=== PATIENT | female | born 1985 | race Caucasian/White ===

== ENCOUNTER 2017-07-01 09:36 | Emergency (ER) | payer OTHER ==
[2017-07-01 10:20] LABS: Absolute Lymphocytes (CBC) 1.6 K/uL (0.7-4.9); Absolute Monocytes 0.6 K/uL (0.1-1.3); Basophils % 0.8 % (0-1.3); Eosinophils % 1.1 % (0-4.4); Hematocrit 33.3 % (36.0-45.0); Lymphocytes % 25.7 % (15.3-44.8); MCV 86.4 fL (80-100); Monocytes % 9.1 % (3.3-12.3); RBC Red Blood Cell Count 3.86 M/uL (3.86-4.86)
--- NOTE | 2017-07-01 10:31 | RAD REPORT ---
EXAM DESCRIPTION: CT - Head Brain Wo Cont - 07/01/2017 10:22 am CLINICAL HISTORY: Right sided numbness. Headaches x2 days COMPARISON: None. TECHNIQUE: Computed axial tomography of the head was obtained. IV contrast was not requested. All CT scans are performed using dose optimization technique as appropriate and may include automated exposure control or mA/KV adjustment according to patient size. FINDINGS: An intracranial bleed is not seen . The ventricles are normal in caliber. No extra-axial fluid collection is noted. Fluid within the sinuses/ mastoids is not seen. IMPRESSION: No acute intracranial abnormality is seen. If patient's symptoms persist MRI of the bra in would be recommended.
[2017-07-01 10:49] LABS: Protime INR 1.01
[2017-07-01 11:21] LABS: Bicarbonate 28 mEq/L (21-31); Glucose Level 81 mg/dL (65-120); Potassium 3.5 mEq/L (3.6-5.0); Sodium Level 141 mEq/L (135-145)
[2017-07-01 11:27] LABS: ALT/SGPT 17 IU/L (10-60); AST/SGOT 25 IU/L (10-42); Albumin 4.1 g/dL (3.2-5.5); Alkaline Phosphatase 53 IU/L (42-121); BUN Blood Urea Nitrogen 8 mg/dL (6-20); Bilirubin Direct 0.1 mg/dL (0-0.2); Bilirubin Total 0.2 mg/dL (0.3-1.2)
--- NOTE | 2017-07-01 11:31 | RAD REPORT ---
EXAM DESCRIPTION: MRI - Brain Wo Cont - 07/01/2017 11:14 am CLINICAL HISTORY: Right facial and body numbness COMPARISON: Head CT July 01, 2017 TECHNIQUE: Axial, sagittal, and coronal magnetic images of the brain were obtained. Contrast was not requested FINDINGS: No abnormal signal is present within the brain. Diffusion-weighted/ADC mapping does not reveal evidence of acute infarction. The ventricles are normal caliber. An extra-axial fluid collection is not present 11 millimeter mucus retention cyst is present in the right maxillary sinus. Fluid within the sinuses/ mastoids is not seen IMPRESSION: Unremarkable unenhanced brain MRI
[2017-07-01] MEDS ORDERED: KETOROLAC 30 MG/ML INJ ONE (11:37)
[2017-07-01] MEDS ORDERED: PROMETHAZINE 25 MG/ML VIAL ONE (11:37)
[2017-07-01] MEDS ORDERED: NA CHLORIDE 0.9% 1,000 ML ONE (11:38)
--- NOTE | 2017-07-01 12:12 | ER ---
Nurse's Notes [facility] Name: Lena Viramontes Age: 32 yrs Sex: Female : 1985 Arrival Date: 07/01/2017 Time: 09:38 Bed 17 Private MD: Diagnosis: Headache-Resolved;Facial paresthesia - Resolved Presentation: 07/01 09:46 Presenting complaint: Patient states: Pt reports headache X 2 days, numbness/tingling lm7 to right side of face and right hand since yesterday. Transition of care: patient was not received from another setting of care. Onset of symptoms was June 29, 2017. Care prior to arrival: None. 09:46 Method Of Arrival: Ambulatory lm7 09:46 Acuity: RAY 3 lm7 10:19 Initial Sepsis Screen: Does the patient meet any 2 criteria? No. Patient's initial em sepsis screen is negative. Does the patient have a suspected source of infection? No. Patient's initial sepsis screen is negative. Triage Assessment: 09:52 General: Appears in no apparent distress. Behavior is calm, cooperative. Pain: lm7 Complains of pain in right side of head and face. Neuro: Level of Consciousness is awake, alert, obeys commands, Oriented to person, place, time, situation. Respiratory: Airway is patent. Derm: Skin is intact, is healthy with good turgor, Skin is dry, Skin is pink, warm \T\ dry. normal. 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 - Social history:: Smoking status: Patient/guardian denies using alcohol, tobacco products. Screenin:25 Abuse screen: Denies threats or abuse. Nutritional screening: No deficits noted. em Tuberculosis screening: No symptoms or risk factors identified. Fall Risk None identified. Assessment: 10:05 General: Appears in no apparent distress. comfortable, Behavior is calm, cooperative, em Reports headache that started yesterday and had tingling in right side of face and noticed right side of smile droop Denies fever. Pain: Complains of pain in base of the skull Pain radiates to right eye Pain currently is 1 out of 10 on a pain scale. Pain began 1 day ago. Neuro: Level of Consciousness is awake, alert, obeys commands, Oriented to person, place, time, situation, Application Integration Specialist are equal bilaterally Moves all extremities. Gait is steady, Speech is normal, Facial droop on right, Pupils are PERRLA, Tingling in right cheek and right jaw. Neuro: Reports blurred vision in the right eye when the headache comes on. Cardiovascular: Heart tones S1 S2 present Capillary refill < 3 seconds Patient's skin is warm and dry. Respiratory: Airway is patent Respiratory effort is even, unlabored, Respiratory pattern is regular, symmetrical. GI: Abdomen is flat, Patient currently denies nausea, vomiting. : Urine is clear. EENT: No signs and/or symptoms were reported regarding the EENT system. Derm: Skin is intact, Skin is pink, warm \T\ dry. Musculoskeletal: Range of motion: intact in all extremities. 10:15 Reassessment: Patient appears in no apparent distress at this time. No changes from iw previously documented assessment. I agree with above assessment by Abdulkadir Tuttle LVN. 10:54 Reassessment: Patient appears in no apparent distress at this time. Patient and/or em family updated on plan of care and expected duration. Pain level reassessed. Patient is alert, oriented x 3, equal unlabored respirations, skin warm/dry/pink. 11:35 General: Smells of Reports Pt reports pain 3/10, states pain is bearable but nagging lm7 and sharp. Pt's sister at bedside stating pt has high pain tolerance and that pt is very stoic. VSS. Muscle twitching noted to right lower eyelid, smile is asymmetrical. ER MD notified. Will continue to monitor. . 11:51 General: Pt reports pain is resolved, feels drowsy. Numbness/tingling to right side of lm7 face is unchanged, VSS, awaiting MRI results, NAD noted at this time. Vital Signs: 09:52 BP 116 / 70; Pulse 74; Resp 16; Temp 97.8(O); Pulse Ox 100% on R/A; Weight 58.97 kg; lm7 Height 5 ft. 6 in. (167.64 cm); Pain 3/10; 11:34 BP 125 / 82; Pulse 62; Resp 16; Pulse Ox 100% on R/A; Pain 3/10; lm7 12:20 BP 120 / 77; Pulse 61; Resp 18; Pulse Ox 100% on R/A; Pain 1/10; em 09:52 Body Mass Index 20.98 (58.97 kg, 167.64 cm) lm7 Stanley Coma Score: 11:34 Eye Response: spontaneous(4). Verbal Response: oriented(5). Motor Response: obeys lm7 commands(6). Total: 15. ED Course: 09:38 Patient arrived in ED. iw 09:45 Julien Gutierrez MD is Attending Physician. kdr 09:45 Abdulkadir Tuttle LVN is Primary Nurse. em 09:48 Triage completed. lm7 09:52 Arm band placed on left wrist. lm7 09:53 Urine collected: clean catch specimen, clear, trung colored. jb1 10:05 Patient has correct armband on for positive identification. Bed in low position. Call em light in reach. Side rails up X2. Adult w/ patient. 10:10 No provider procedures requiring assistance completed. Initial lab(s) drawn, by me, em sent to lab. Inserted saline lock: 20 gauge in right antecubital area, using aseptic technique. Blood collected. 10:13 CT completed. Patient tolerated procedure well. Patient moved to CT via wheelchair. sj Patient moved back from CT. 10:22 CT Head Brain wo Cont In Process Unspecified. EDMS 10:55 Patient moved to MRI via wheelchair. ka 11:13 MRI completed. Patient tolerated well. Patient moved back from MRI. ka 11:14 Brain Wo Cont In Process Unspecified. EDMS 12:26 IV discontinued, intact, bleeding controlled, No redness/swelling at site. Pressure em dressing applied. Administered Medications: 11:41 Drug: NS 0.9% 1000 ml Route: IV; Rate: 1 bolus; Site: right antecubital; em 12:26 Follow up: IV Status: Completed infusion; IV Intake: 900ml em 11:47 Drug: Phenergan 12.5 mg {Note: dluted in 10cc NS, IVF infusing.} Route: IVP; Infused lm7 Over: 3 mins; Site: right antecubital; 12:26 Follow up: Response: No adverse reaction em 11:48 Drug: TORadol 30 mg Route: IVP; Infused Over: 3 mins; Site: right antecubital; lm7 12:26 Follow up: Response: No adverse reaction; Pain is decreased em Intake: 12: IV: 900ml; Total: 900ml. em Outcome: 12:11 Discharge ordered by . kdr 12: Discharged to home ambulatory, with family. em 12: Condition: good 12:26 Discharge instructions given to patient, Instructed on discharge instructions, follow up and referral plans. medication usage, Demonstrated understanding of instructions, follow-up care, medications, Prescriptions given X 2. 12:28 Patient left the ED. em Signatures: Dispatcher [employer] Josemanuel Randhawa jb1 Julien Gutierrez MD MD kdr Jones, Susan sj Munoz, Edgar, ETHYLENE PLANT HELPER ETHYLENE PLANT HELPER em Jalyn Martinez RN RN iw Minter, Laura lm7 Mabel Nguyen
--- NOTE | 2017-07-01 12:12 | EDPHYS ---
Physician Documentation [facility] Name: Lena Viramontes Age: 32 yrs Sex: Female : 1985 Arrival Date: 07/01/2017 Time: 09:38 Bed 17 Private MD: ED Physician Julien Gutierrez HPI: 07/01 16:00 This 32 yrs old Female presents to ER via Ambulatory with complaints of kdr Headache. 16:00 The patient complains of pain to the right frontal area, right temporal area, right kdr side of forehead, right occipital area and right base of the skull. The patient describes the headache as aching, constant, a pressure, unrelenting. Onset: The symptoms/episode began/occurred 2 day(s) ago. Associated signs and symptoms: Pertinent positives: Right facial numbness and weakness - feels tingling and decreased sensation in the right face and asymmetric smile. Severity of symptoms: At its worst the pain was moderate, just prior to arrival, in the emergency department the pain is unchanged. Headache History: Denies prior headaches. The symptoms are alleviated by nothing. the symptoms are aggravated by movement, stress. The patient has not experienced similar symptoms in the past. The patient has not recently seen a physician. 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 - Social history:: Smoking status: Patient/guardian denies using alcohol, tobacco products. ROS: 16:00 Constitutional: Negative for fever, chills, and weight loss, Eyes: Negative for injury, kdr pain, redness, and discharge, ENT: Negative for injury, pain, and discharge, Neck: Negative for injury, pain, and swelling, Cardiovascular: Negative for chest pain, palpitations, and edema, Respiratory: Negative for shortness of breath, cough, wheezing, and pleuritic chest pain, Abdomen/GI: Negative for abdominal pain, nausea, vomiting, diarrhea, and constipation, Back: Negative for injury and pain, : Negative for injury, bleeding, discharge, and swelling, MS/Extremity: Negative for injury and deformity, Skin: Negative for injury, rash, and discoloration, Psych: Negative for depression, anxiety, suicide ideation, homicidal ideation, and hallucinations, Allergy/Immunology: Negative for hives, rash, and allergies, Endocrine: Negative for neck swelling, polydipsia, polyuria, polyphagia, and marked weight changes, Hematologic/Lymphatic: Negative for swollen nodes, abnormal bleeding, and unusual bruising. 16:00 Neuro: Positive for headache, tingling, weakness, Negative for altered mental status, dizziness, gait disturbance, hearing loss, loss of consciousness, numbness, seizure activity, syncope, near syncope, tinnitus, tremor, visual changes, weakness. Exam: 16:00 Constitutional: This is a well developed, well nourished patient who is awake, alert, kdr and in no acute distress. Head/Face: Normocephalic, atraumatic. Eyes: Pupils equal round and reactive to light, extra-ocular motions intact. Lids and lashes normal. Conjunctiva and sclera are non-icteric and not injected. Cornea within normal limits. Periorbital areas with no swelling, redness, or edema. ENT: Nares patent. No nasal discharge, no septal abnormalities noted. Tympanic membranes are normal and external auditory canals are clear. Oropharynx with no redness, swelling, or masses, exudates, or evidence of obstruction, uvula midline. Mucous membranes moist. Neck: Trachea midline, no thyromegaly or masses palpated, and no cervical lymphadenopathy. Supple, full range of motion without nuchal rigidity, or vertebral point tenderness. No Meningismus. Chest/axilla: Normal chest wall appearance and motion. Nontender with no deformity. No lesions are appreciated. Cardiovascular: Regular rate and rhythm with a normal S1 and S2. No gallops, murmurs, or rubs. Normal PMI, no JVD. No pulse deficits. Respiratory: Lungs have equal breath sounds bilaterally, clear to auscultation and percussion. No rales, rhonchi or wheezes noted. No increased work of breathing, no retractions or nasal flaring. Abdomen/GI: Soft, non-tender, with normal bowel sounds. No distension or tympany. No guarding or rebound. No evidence of tenderness throughout. Back: No spinal tenderness. No costovertebral tenderness. Full range of motion. Skin: Warm, dry with normal turgor. Normal color with no rashes, no lesions, and no evidence of cellulitis. MS/ Extremity: Pulses equal, no cyanosis. Neurovascular intact. Full, normal range of motion. Neuro: Awake and alert, GCS 15, oriented to person, place, time, and situation. Cranial nerves II-XII grossly intact. Motor strength 5/5 in all extremities. Sensory grossly intact. Cerebellar exam normal. Normal gait. Psych: Awake, alert, with orientation to person, place and time. Behavior, mood, and affect are within normal limits. Vital Signs: 09:52 BP 116 / 70; Pulse 74; Resp 16; Temp 97.8(O); Pulse Ox 100% on R/A; Weight 58.97 kg; lm7 Height 5 ft. 6 in. (167.64 cm); Pain 3/10; 11:34 BP 125 / 82; Pulse 62; Resp 16; Pulse Ox 100% on R/A; Pain 3/10; lm7 12:20 BP 120 / 77; Pulse 61; Resp 18; Pulse Ox 100% on R/A; Pain 1/10; em 09:52 Body Mass Index 20.98 (58.97 kg, 167.64 cm) lm7 Stanley Coma Score: 11:34 Eye Response: spontaneous(4). Verbal Response: oriented(5). Motor Response: obeys lm7 commands(6). Total: 15. MDM: 12:11 Patient medically screened. kdr 16:00 Data reviewed: vital signs, nurses notes, lab test result(s), radiologic studies. kdr Counseling: I had a detailed discussion with the patient and/or guardian regarding: the historical points, exam findings, and any diagnostic results supporting the discharge/admit diagnosis, lab results, radiology results, the need for outpatient follow up. 07/01 10:00 Order name: CBC with Diff; Complete Time: 11:33 kdr 07/01 10:00 Order name: Chem 7; Complete Time: 11:33 kdr 07/01 10:00 Order name: PT-INR; Complete Time: 11: kdr 07/01 10:00 Order name: LFT's; Complete Time: 11:33 kdr 07/01 10:06 Order name: Urine Dipstick--Ancillary (enter results) bd 07/01 10:06 Order name: Urine --Ancillary (enter results) bd 07/01 10:00 Order name: CT Head Brain wo Cont; Complete Time: 10:41 kdr 07/01 10:00 Order name: Urine Dipstick-Ancillary (obtain specimen); Complete Time: 10:18 kdr 07/01 11:14 Order name: Brain Wo Cont; Complete Time: 11:33 EDMS Administered Medications: 11:41 Drug: NS 0.9% 1000 ml Route: IV; Rate: 1 bolus; Site: right antecubital; em 12:26 Follow up: IV Status: Completed infusion; IV Intake: 900ml em 11:47 Drug: Phenergan 12.5 mg {Note: dluted in 10cc NS, IVF infusing.} Route: IVP; Infused lm7 Over: 3 mins; Site: right antecubital; 12:26 Follow up: Response: No adverse reaction em 11:48 Drug: TORadol 30 mg Route: IVP; Infused Over: 3 mins; Site: right antecubital; lm7 12:26 Follow up: Response: No adverse reaction; Pain is decreased em Disposition: 07/01/17 12:11 Discharged to Home. Impression: Headache - Resolved, Facial paresthesia - Resolved. - Condition is Stable. - Discharge Instructions: Pain Without a Known Cause, General Headache Without Cause, [id number]. - Prescriptions for ketorolac 10 mg Oral tablet - take 1 tablet by ORAL route every 4-6 hours As needed not to exceed 40 mg in 24hrs; 16 tablet. promethazine 25 mg Oral Tablet - take 1 tablet by ORAL route every 6 hours As needed; 16 tablet. - Medication Reconciliation Form, Thank You Letter form. - Follow up: Private Physician; When: 2 - 3 days; Reason: If symptoms return, Further diagnostic work-up, Recheck today's complaints, Continuance of care, Re-evaluation by your physician. - Problem is new. - Symptoms are resolved. Signatures: Dispatcher [employer] EDJulien Mcgraw MD MD kdr Munoz, Edgar, THERAPEUTIC SALES SPECIALIST THERAPEUTIC SALES SPECIALIST em Gloria Nix lm7 Corrections: (The following items were deleted from the chart) 11:14 10:42 MR STROKE PROTOCOL+MRI.RAD.BRZ ordered. EDMS EDMS
[2017-07-01 12:13] LABS: Urine Blood 3+ (NEG); Urine Glucose NEGATIVE (NEG); Urine Protein NEGATIVE (NEG); Urine Specific Gravity 1.015 (1.005-1.030)
== END 2017-07-01 12:28 | disposition home or self-care (01) ==
LOC: ER 09:36
DX: R53.1 Weakness (principal); Z88.0 Allergy status to penicillin
CPT/HCPCS: 36415; 70450; 70551; 80048; 80076; 81003; 81025; 85025; 85610; 96361; 96374; 96375; 99284; J2550; J7030

== ENCOUNTER 2017-07-02 14:10 | Emergency (ER) | payer OTHER ==
--- NOTE | 2017-07-02 15:28 | ER ---
Nurse's Notes [facility] Name: Lena Viramontes Age: 32 yrs Sex: Female : 1985 Arrival Date: 07/02/2017 Time: 14:11 Bed 5 Private MD: Jose Zee Diagnosis: Amos's palsy Presentation: 07/02 14:17 Presenting complaint: Patient states: seen here yesterday for right sided facial la1 numbness. R/O CVA with MRI. facial numbness worse today. Transition of care: patient was not received from another setting of care. Onset of symptoms was July 02, 2017. Initial Sepsis Screen: Does the patient meet any 2 criteria? No. Patient's initial sepsis screen is negative. Does the patient have a suspected source of infection? No. Patient's initial sepsis screen is negative. Care prior to arrival: None. 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 - Social history:: Smoking status: Patient/guardian denies using tobacco. Screenin:10 Abuse screen: Denies threats or abuse. Denies injuries from another. Nutritional sv screening: No deficits noted. Tuberculosis screening: No symptoms or risk factors identified. Fall Risk No fall in past 12 months (0 pts). No secondary diagnosis (0 pts). No IV (0 pts). Ambulatory Aid- None/Bed Rest/Nurse Assist (0 pts). Gait- Normal/Bed Rest/Wheelchair (0 pts) Mental Status- Oriented to own ability (0 pts). Total Ho Fall Scale indicates No Risk (0-24 pts). Assessment: 15:05 General: Appears in no apparent distress. uncomfortable, well groomed, well developed, sv Behavior is calm, cooperative, appropriate for age. Pain: Complains of pain in right ear and right base of the skull Pain currently is 3 out of 10 on a pain scale. Is intermittent, Alleviated by Pt stated that it got better in the middle of the night but then woke up this morning and it was bad again. Neuro: Level of Consciousness is awake, alert, obeys commands, Oriented to person, place, time, situation, Moves all extremities. Full function Gait is steady, Speech is normal, Facial droop on right, Reports "no functioning on the right side of my face." pt stated that she is unable to close her right eye unless she closes it herself. Pt stated that she can't eat or drink correctly because it comes out on the right side of her mouth.. Cardiovascular: Patient's skin is warm and dry. Respiratory: Respiratory effort is even, unlabored, Respiratory pattern is regular, symmetrical. Derm: Skin is pink, warm \\T\\ dry. Musculoskeletal: No signs and/or symptoms reported regarding the musculoskeletal system. 15:44 Reassessment: Patient appears in no apparent distress at this time. No changes from sv previously documented assessment. Patient and/or family updated on plan of care and expected duration. Pain level reassessed. Patient is alert, oriented x 3, equal unlabored respirations, skin warm/dry/pink. Vital Signs: 14:18 BP 118 / 70; Pulse 64; Resp 16; Temp 97.6; Pulse Ox 100% on R/A; Weight 72.57 kg; la1 Height 5 ft. 5 in. (165.10 cm); 14:18 Body Mass Index 26.63 (72.57 kg, 165.10 cm) la1 ED Course: 14:11 Patient arrived in ED. as 14:11 Jose Zee MD is Private Physician. as 14:17 Arm band placed on left wrist. la1 14:18 Triage completed. la1 14:34 Abby Smith, RN is Primary Nurse. sv 15:02 Patient has correct armband on for positive identification. Bed in low position. Call sv light in reach. Door closed. Head of bed elevated. 15:03 Awaiting ED provider evaluation. sv 15:14 Silvio López MD is Attending Physician. ps1 15:27 Jose Zee MD is Referral Physician. ps1 15:44 No provider procedures requiring assistance completed. Patient did not have IV access sv during this emergency room visit. Administered Medications: No medications were administered Outcome: 15:27 Discharge ordered by . ps1 15:45 Discharged to home ambulatory, with family. sv 15:45 Condition: stable 15:45 Discharge instructions given to patient, Instructed on discharge instructions, follow up and referral plans. medication usage, Demonstrated understanding of instructions, follow-up care, medications, Prescriptions given X 4. 15:45 Patient left the ED. sv Signatures: Abby Smith RN RN sv Martinez, Amelia as Attema, Lee, RN RN la1 Silvio López MD MD ps1
--- NOTE | 2017-07-02 15:28 | EDPHYS ---
Physician Documentation [facility] Name: Lena Viramontes Age: 32 yrs Sex: Female : 1985 Arrival Date: 07/02/2017 Time: 14:11 Bed 5 Private MD: Jose Zee ED Physician Silvio López HPI: 07/02 15:33 This 32 yrs old Female presents to ER via Ambulatory with complaints of ps1 Amos's palsy. 15:33 The patient's problem is reported as a facial droop, on right. Onset: The ps1 symptoms/episode began/occurred yesterday. Duration: The episode is continuous. Context: was seen and evaluated for same yesterday. no symptomatic meds given. Had normal MRI. Now with inability to close eye. . The patient has been recently seen by a physician: yesterday, with similar presenting complaints, and a MRI was done. 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 - Social history:: Smoking status: Patient/guardian denies using tobacco. ROS: 15:33 Constitutional: Negative for fever, chills, and weight loss, Eyes: Negative for injury, ps1 pain, redness, and discharge, Neck: Negative for injury, pain, and swelling, Cardiovascular: Negative for chest pain, palpitations, and edema, Respiratory: Negative for shortness of breath, cough, wheezing, and pleuritic chest pain, Abdomen/GI: Negative for abdominal pain, nausea, vomiting, diarrhea, and constipation, MS/Extremity: Negative for injury and deformity, Psych: Negative for depression, anxiety, suicide ideation, homicidal ideation, and hallucinations. 15:33 Neuro: Positive for weakness. Exam: 15:33 Constitutional: This is a well developed, well nourished patient who is awake, alert, ps1 and in no acute distress. Eyes: Pupils equal round and reactive to light, extra-ocular motions intact. Lids and lashes normal. Conjunctiva and sclera are non-icteric and not injected. ENT: Nares patent. No nasal discharge, no septal abnormalities noted. Tympanic membranes are normal and external auditory canals are clear. Oropharynx with no redness, swelling, or masses, exudates, or evidence of obstruction, uvula midline. Mucous membranes moist. Chest/axilla: Normal chest wall appearance and motion. Nontender with no deformity. No lesions are appreciated. Cardiovascular: Regular rate and rhythm. No gallops, murmurs, or rubs. Normal PMI, no JVD. No pulse deficits. Respiratory: Lungs have equal breath sounds bilaterally, clear to auscultation and percussion. No rales, rhonchi or wheezes noted. No increased work of breathing, no retractions or nasal flaring. Abdomen/GI: Soft, non-tender, with normal bowel sounds. No distension or tympany. No guarding or rebound. No evidence of tenderness throughout. MS/ Extremity: Pulses equal, no cyanosis. Neurovascular intact. Full, normal range of motion. 15:33 Neuro: Cranial nerves: facial droop noted on right, Ptosis of right upper eyelid. 15:36 CT study not indicated or reported. Reason for not performing CT: MRI done yesterday. ps1 Vital Signs: 14:18 BP 118 / 70; Pulse 64; Resp 16; Temp 97.6; Pulse Ox 100% on R/A; Weight 72.57 kg; la1 Height 5 ft. 5 in. (165.10 cm); 14:18 Body Mass Index 26.63 (72.57 kg, 165.10 cm) la1 MDM: 15:27 Patient medically screened. ps1 15:39 Data reviewed: vital signs, nurses notes. ps1 Administered Medications: No medications were administered Disposition: 07/02/17 15:27 Discharged to Home. Impression: Amos's palsy. - Condition is Stable. - Discharge Instructions: Amos Palsy. - Prescriptions for Lubricant Dry Eye Relief - apply 2 drop by OPHTHALMIC route every 2 hours for 14-21 days; 1 bottle. Acyclovir 800 mg Oral Tablet - take 1 tablet by ORAL route 5 times per day for 10 days; 50 tablet. Medrol (Kt) 4 mg Oral Tablets, Dose Pack - take 1 tablet by ORAL route as directed - follow package instructions; 1 packet. Erythromycin 5 mg/gram (0.5 %) Ophthalmic Ointment - apply 1 ribbon by OPHTHALMIC route Every night; 1 tube. - Medication Reconciliation Form, Thank You Letter, Antibiotic Education, Prescription Opioid Use form. - Follow up: Jose Zee MD; When: As needed; Reason: Recheck today's complaints, Continuance of care, Re-evaluation by your physician. - Problem is an ongoing problem. - Symptoms have worsened. Signatures: Abby Smith RN RN sv Prasanth Mata RN RN la1 Silvio López MD MD ps1
== END 2017-07-02 15:45 | disposition home or self-care (01) ==
LOC: ER 14:10
DX: G51.0 Bell's palsy (principal); Z88.0 Allergy status to penicillin
CPT/HCPCS: 99282

== ENCOUNTER 2019-01-19 08:16 | Inpatient (IN) | payer BC ==
[2019-01-19] MEDS ORDERED: NA CHLORIDE 0.9% 1,000 ML ONE ×3 (08:51→10:00)
[2019-01-19] MEDS ORDERED: SIMETHICONE 80 MG TAB ONE (08:51)
[2019-01-19] MEDS ORDERED: ONDANSETRON 4 MG/2 ML VIAL ONE ×2 (09:07→10:51)
[2019-01-19 09:10] LABS: Absolute Lymphocytes (CBC) 1.9 K/uL (0.7-4.9); Basophils % 0.3 % (0-1.3); Hematocrit 30.6 % (36.0-45.0); Lymphocytes % 15.6 % (15.3-44.8); MPV 7.5 fL (7.6-11.3); RBC Red Blood Cell Count 3.95 M/uL (3.86-4.86)
[2019-01-19 09:28] LABS: ALT/SGPT 15 U/L (12-78); AST/SGOT 9 U/L (15-37); Albumin 3.5 g/dL (3.4-5.0); Alkaline Phosphatase 53 U/L (45-117); BUN Blood Urea Nitrogen 13 mg/dL (7-18); Bicarbonate 29 mmol/L (21-32); Bilirubin Direct < 0.1 mg/dL (0-0.2); Bilirubin Total 0.2 mg/dL (0.2-1.0); Creatine Phosphokinase 35 U/L (26-192); Glucose Level 95 mg/dL (74-106); Magnesium 1.8 mg/dL (1.8-2.4); Potassium 3.1 mmol/L (3.5-5.1); Sodium Level 141 mmol/L (136-145)
--- NOTE | 2019-01-19 09:59 | RAD REPORT ---
EXAM DESCRIPTION: CT - Chest Abdomen Pelvis W Cont - 01/19/2019 9:26 am CLINICAL HISTORY: Abdominal pain, lower chest pain COMPARISON: None. TECHNIQUE: Following dynamic enhancement using 100 milliliters nonionic IV contrast, axial imaging o f the chest, abdomen and pelvis was performed. Biphasic technique was utilized through the abdomen. No oral contrast administered. All CT scans are performed using dose optimization technique as appropriate and may include automated exposure control or mA/KV adjustment according to patient size. FINDINGS: Lungs are clear of mass and infiltrate. No pleural effusion, pleural thickening or pneumot horax. No significant aortic or pulmonary arterial tree finding. Mediastinal and hilar regions show n o mass or abnormal lymphadenopathy. No chest wall mass or axillary lymphadenopathy. The liver, spleen and pancreas show no suspicious findings. Gallbladder and biliary tree are unremark able. Gallstones can be occult on CT imaging. Symmetric renal function is seen with no mass or hydro nephrosis. No adrenal abnormalities. Free intraperitoneal air is present. There is a small amount of free fluid. Large stool volume is pre sent filling but not dilating the entire course of the colon. No colon wall thickening or mass. No fi nding to suspect colon as a source for the free air and fluid. No evidence for stool within the perit matos cavity. Patient is status post gastric surgery. Gastric antrum and duodenum show no suspicious findings. Ther e is slight wall thickening near the proximal gastric anastomosis. There is more prominent circumfere ntial small bowel wall thickening at several loops in proximity to the distal anastomosis. A definiti ve site for the perforated viscus is not identified. Distal small bowel is uninvolved. The appendix is not clearly identified. There is fecalized bowel co ntent in the terminal ileum. Perforated appendicitis is not suspected. There is no free air in the ri ght lower quadrant. Uterus and ovaries show no suspicious findings. No significant vascular findings. No significant bone finding. IMPRESSION: Free intraperitoneal air and small amount of free fluid consistent with a perforated vis cus. Site of perforation is not definitive. There is slight wall thickening at the proximal stomach small bowel anastomosis as well as small bowel circumferential wall thickening involving several loops near the distal small bowel anastomosis. Perforation could be at either of these locations. Gastric antru m and proximal duodenum show no suspicious findings. Moderate stool volume throughout the colon. Colon perforation is not suspected. The appendix is not c learly defined. Perforated appendicitis is not suspected. No free air is not located in the right low er quadrant. No significant CT chest finding. The solid abdominal visceral are intact. No evidence for gallbladder or biliary tree injury.
[2019-01-19] MEDS ORDERED: FENTANYL CITR 100 MCG/2 ML ONE ×2 (10:00→10:48)
[2019-01-19] MEDS ORDERED: METRONIDAZOLE 500mg IVPB 500 MG/100 ML BAG IV ONE (10:10)
[2019-01-19] MEDS ORDERED: Levofloxacin 750mg IV 750 MG/150 ML BAG IV ONE (10:10)
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
[2019-01-19] MEDS ORDERED: BUPIVACA 0.5%/EPI 0.0005%/PF 30 ML VIAL ONE (10:46)
[2019-01-19] MEDS ORDERED: PROPOFOL 200 MG/20 ML VIAL IV ONE (10:48)
[2019-01-19] MEDS ORDERED: LIDOCAINE 2% MPF 5 ML VIAL ONE (10:49)
[2019-01-19] MEDS ORDERED: MIDAZOLAM HCL 2 MG/2 ML INJ ONE (10:49)
[2019-01-19] MEDS ORDERED: ROCURONIUM 50 MG/5 ML VIAL IV ONE (10:53)
[2019-01-19] MEDS ORDERED: Phenylephrine HCl 10 MG/ML 1 ML VIAL ONE (11:01)
[2019-01-19] MEDS ORDERED: SUCCINYLCHOLINE 20 MG/ML (10 ML) IV ONE (11:12)
[2019-01-19] MEDS ORDERED: NS 0.9% VIAL 10 ML ONE (11:37)
[2019-01-19] MEDS ORDERED: dexAMETHasone 10 MG/ML VIAL ONE (11:46)
[2019-01-19] MEDS ORDERED: KETOROLAC 30 MG/ML INJ ONE (11:46)
[2019-01-19] MEDS ORDERED: GLYCOPYRROLATE 0.2 MG/ML SYR ONE (12:11)
[2019-01-19] MEDS ORDERED: NEOSTIGMINE 1 MG/ML -5 ML ONE (12:19)
--- NOTE | 2019-01-19 12:31 | P.OP ---
Preoperative diagnosis: Intestinal Perforation Postoperative diagnosis: Intestinal Perforation @ Gastro-jejunostomy Primary procedure: Exploratory Laparotomy Secondary procedure: Jan Patch repair of Gastric peforation Anesthesia: GETA Estimated blood loss: <10cc Specimen: None Findings: Intestinal Perforation @ Gastro-jejunostomy Complications: None Drain(s): Nasogastric Transferred to: ICU Condition: Serious
[2019-01-19] MEDS ORDERED: HYDROMORPHONE HCL 1 MG/ML INJ ONE (12:37)
[2019-01-19] MEDS ORDERED: ONDANSETRON 4 MG/2 ML VIAL IV PRN (12:40)
[2019-01-19] MEDS ORDERED: MEPERIDINE HCL 25 MG/0.5 ML ONE (12:42)
[2019-01-19] MEDS: HYDROMORPHONE HCL 1 MG/ML INJ ONE ×2 (12:56→13:04)
[2019-01-19] MEDS: Ringers Lactate 1,000 ML IV SCH ×2 (13:00→15:49)
[2019-01-19] MEDS ORDERED: MAGNESIUM SULFATE 1 gm IVPB 1 GM/100 ML BAG IV ONE (15:31)
[2019-01-19] MEDS: KCL 20 MEQ/100 mL IVPB 20 MEQ/100 ML BAG IV SCH ×2 (16:00→18:41)
[2019-01-19] MEDS ORDERED: KCL 10 MEQ/100 ML IVPB 10 MEQ/100 ML BAG IV SCH (16:00)
[2019-01-19] MEDS: INSULIN -REGULAR HUMAN 50 UNIT/0.5 ML ML SQ SCH ×2 (16:30→20:50)
[2019-01-19] MEDS: METRONIDAZOLE 500mg IVPB 500 MG/100 ML BAG IV SCH ×2 (17:44→23:06)
[2019-01-19] MEDS: HYDROMORPHONE HCL 1 MG/ML INJ IV PRN ×2 (19:24→23:06)
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
--- NOTE | 2019-01-19 22:22 | OP ---
Date of Procedure: 01/19/2019 Surgeon: Topher Matta MD, Preoperative Diagnosis: Intestinal perforation. Postoperative Diagnosis: Intestinal perforation. Procedure Performed: 1.Exploratory laparotomy. 2.Jan patch repair of gastric perforation at gastrojejunostomy. Anesthesia: General endotracheal. Estimated Blood Loss: Less than 10 mL. Specimen: None. Findings: Intestinal perforation at the gastrojejunostomy. It was approximately a quarter of a cm i n size with a clean base anteriorly located. Complications: None. Drains: Nasogastric tube was placed intraoperatively, transferred to the ICU in serious condition. Procedure In Detail: After informed consent was obtained, patient was brought to the operating room, prepped and draped in the usual sterile fashion. After adequate anesthesia was achieved, an upper m idline incision was performed down using a 10-blade scalpel down to the subcutaneous tissues. I diss ected down through the subcutaneous fat to expose the peritoneal lining beyond the abdominal fascia. This was grasped, elevated, and entered sharply with Metzenbaum scissors without evidence of complic ation. At this time, the upper abdomen was opened in its entirety at this time under direct visualiz ation without evidence of complication. I then irrigated the abdomen copiously and traced back the j ejunal limb of the gastrojejunostomy back to the anastomosis of the gastrojejunostomy and found there was an anterior located approximately quarter cm round ulceration to the anterior surface with obvio us leak here. I copiously irrigated the area, packed off the remaining area and placed a series of s titches distally and proximally around the defect. These were 2-0 silk sutures. I then placed a vas cularized pedicle of omentum through this and secured it in a Jan patch type fashion and secured t his down without undue tension. The area was found to be sealed at this time. I then had the anesth esia personnel place an NG tube and ensured position was adequate at this time. I then copiously irr igated the abdomen, which was found to have significant purulent material throughout the entire abdom en. I copiously irrigated using approximately 3.5 L of warm saline clearing around the perihepatic, perisplenic spaces, right and left pericolic gutters, midline and suprapubic position. After this is all copiously irrigated multiple times to completely clear, the area was suctioned out until complet adilene dry. I then replaced the remaining omentum in the normal anatomic position covering the midline incision and closed the incision in an interrupted fashion with a #1 looped PDS suture in a running f ashion with good approximation of the tissues. I then copiously irrigated the skin, closed with inte rrupted didier. The patient tolerated the procedure well without evidence of complication and had a sterile dressing placed over the top. The patient tolerated the procedure well without evidence of complication, transferred back to the ICU in serious condition as she had some mild hypotension preop eratively and in the perioperative period. She will be transferred to the ICU for close observation. All counts were correct at the end of the case. ANU/MK Voice ID: [id number] Report ID: [id number]
[2019-01-19 23:19] LABS: Urine Appearance CLEAR; Urine Blood NEGATIVE (NEG); Urine Color DK YELLOW; Urine Glucose NEGATIVE (NEG); Urine Protein NEGATIVE (NEG); Urine Specific Gravity >=1.030 (1.005-1.030); Urine pH 5.5 (5.0-7.0)
[2019-01-19 23:41] LABS: Urine Bilirubin NEGATIVE (NEG)
[2019-01-19 23:49] LABS: Urine Bacteria <20 /HPF (<20); Urine Culture Reflex Order NOT NEEDED; Urine RBC <5 /HPF (NONE SEEN)
[2019-01-20] MEDS: Ringers Lactate 1,000 ML IV SCH ×3 (01:53→23:45)
[2019-01-20] MEDS: HYDROMORPHONE HCL 1 MG/ML INJ IV PRN ×7 (02:33→23:47)
[2019-01-20 05:17] LABS: Basophils % 0.1 % (0-1.3); Hematocrit 26.1 % (36.0-45.0); Lymphocytes % 6.4 % (15.3-44.8); MPV 7.8 fL (7.6-11.3); RBC Red Blood Cell Count 3.33 M/uL (3.86-4.86)
[2019-01-20 05:36] LABS: BUN Blood Urea Nitrogen 12 mg/dL (7-18); Bicarbonate 25 mmol/L (21-32); Glucose Level 98 mg/dL (74-106); Magnesium 1.8 mg/dL (1.8-2.4); Phosphorus 3.7 mg/dL (2.5-4.9); Potassium 3.9 mmol/L (3.5-5.1); Sodium Level 139 mmol/L (136-145)
[2019-01-20] MEDS: METRONIDAZOLE 500mg IVPB 500 MG/100 ML BAG IV SCH ×4 (05:45→23:45)
[2019-01-20] MEDS ORDERED: MAGNESIUM SULFATE 1 gm IVPB 1 GM/100 ML BAG IV ONE (06:28)
[2019-01-20 06:34] VITALS: BMI 29.0
[2019-01-20] MEDS ORDERED: KCL 20 MEQ/100 mL IVPB 20 MEQ/100 ML BAG IV SCH (07:00)
[2019-01-20] MEDS: INSULIN -REGULAR HUMAN 50 UNIT/0.5 ML ML SQ SCH ×4 (07:30→20:37)
[2019-01-20 08:26] LABS: Anisocytosis SLIGHT; Blood Morphology Comment NOTED (NOT SEEN); Hypochromasia 1+; Platelet Estimate ADEQ; Platelets, Giant NOTED; Urine White Blood Cell Casts OK
--- NOTE | 2019-01-20 09:17 | P.PN ---
Subjective Date of Service: 01/20/19 Subjective: Improving (Patient states her pain is much improved, no acute events.) Physical Examination - Vital Signs Temperature: 98.6 F Blood Pressure: 102/64 Pulse: 94 Respirations: 16 Pulse Ox (%): 94 - Physical Exam General: Alert, In no apparent distress, Cooperative HEENT: Mucous membr. moist/pink Respiratory: Clear to auscultation bilaterally, Normal air movement Cardiovascular: Regular rate/rhythm, Normal S1 S2 Gastrointestinal: Other (soft, mild appropriate TTP, ND, didier in place, dressings dry, binder in place) Musculoskeletal: No swelling, No erythema Integumentary: No rashes Neurological: Normal speech Urinary: Henderson catheter - Studies Laboratory Data (last 24 hrs) 01/19/19 08:47: WBC 12.4 H, Hgb 10.3 L, Hct 30.6 L, Plt Count 355 01/19/19 08:47: Sodium 141, Potassium 3.1 L, BUN 13, Creatinine 0.95, Glucose 95 , Magnesium 1.8, Total Bilirubin 0.2, AST 9 L, ALT 15, Alkaline Phosphatase 53 Assessment And Plan - Plan POD #1 s/p Exploratory laparatomy and Jan patch repair of perforated gastric ulcer Neuro - continue current pain management regime CVS - HD stable, continue IV hydration, Hgb drop likely dilutional Pulm - Continue incentive spirometry with goal 15cc/kg GI - serial exams -will order swallow exam likely on tuesday, DC NG tube today FEN: continue IV hydration, electrolyte replacement protocol to continue, NPO ID: continue levaquin / flagyl for intra-abdominal contamination Renal: DC henderson today, continue strict i/o Prophylaxis - continue lovenox for now, will likely DC soon when patient ambulatory, SCDs on - PT consult - transfer to floor today
[2019-01-20] MEDS: ENOXAPARIN 40 MG/0.4 ML SQ SCH (09:34)
[2019-01-20] MEDS: Levofloxacin500mg IV 500 MG/100 ML BAG IV SCH (09:34)
[2019-01-21] MEDS: HYDROMORPHONE HCL 1 MG/ML INJ IV PRN ×2 (04:43→09:57)
[2019-01-21] MEDS: METRONIDAZOLE 500mg IVPB 500 MG/100 ML BAG IV SCH ×3 (05:38→17:52)
[2019-01-21] MEDS: Ringers Lactate 1,000 ML IV SCH ×2 (05:38→13:00)
[2019-01-21 05:45] LABS: Absolute Lymphocytes (CBC) 1.1 K/uL (0.7-4.9); Basophils % 0.3 % (0-1.3); Lymphocytes % 6.9 % (15.3-44.8); MPV 7.8 fL (7.6-11.3); RBC Red Blood Cell Count 3.21 M/uL (3.86-4.86)
[2019-01-21 05:54] LABS: BUN Blood Urea Nitrogen 12 mg/dL (7-18); Bicarbonate 25 mmol/L (21-32); Glucose Level 84 mg/dL (74-106); Magnesium 1.6 mg/dL (1.8-2.4); Phosphorus 2.4 mg/dL (2.5-4.9); Potassium 3.6 mmol/L (3.5-5.1); Sodium Level 136 mmol/L (136-145)
[2019-01-21] MEDS: INSULIN -REGULAR HUMAN 50 UNIT/0.5 ML ML SQ SCH ×4 (07:30→21:00)
[2019-01-21] MEDS ORDERED: MAGNESIUM SULFATE 1 gm IVPB 1 GM/100 ML BAG IV ONE (08:00)
[2019-01-21] MEDS ORDERED: POTASSIUM PHOS IN 0.9 % NACL 15 MMOL/250 ML BAG IV ONE (09:00)
[2019-01-21] MEDS: ENOXAPARIN 40 MG/0.4 ML SQ SCH (10:17)
[2019-01-21] MEDS: Levofloxacin500mg IV 500 MG/100 ML BAG IV SCH (11:08)
--- NOTE | 2019-01-21 11:10 | P.PN ---
Subjective Date of Service: 01/21/19 Patient feels better with rest, but more pain with ambulation. Physical Examination - Vital Signs Temperature: 97.1 F Blood Pressure: 117/71 Pulse: 97 Respirations: 16 Pulse Ox (%): 99 - Physical Exam General: Alert, In no apparent distress, Cooperative HEENT: Mucous membr. moist/pink Respiratory: Clear to auscultation bilaterally Cardiovascular: Regular rate/rhythm Gastrointestinal: Other (soft, mild appropriate TTP, ND, incision clean, didier in place) Assessment And Plan - Plan POD #1 s/p Exploratory laparatomy and Jan patch repair of perforated gastric ulcer Neuro - continue current pain management regime, change dilaudid to morphine CVS - HD stable, continue IV hydration, Hgb stable Pulm - Continue incentive spirometry with goal 15cc/kg GI - serial exams -will order swallow exam likely on tuesday, NG tube out FEN: continue IV hydration, electrolyte replacement protocol to continue, NPO ID: continue levaquin / flagyl for intra-abdominal contamination Renal: DC henderson, continue strict i/o Prophylaxis - continue lovenox for now, will likely DC soon when patient ambulatory, SCDs on - PT consult
[2019-01-21] MEDS: MORPHINE 2 MG/ML SYR IV PRN ×3 (12:42→22:24)
[2019-01-21] MEDS ORDERED: D50W 25 GM/50 ML SYRINGE/VIAL IV PRN (15:37)
[2019-01-21] MEDS ORDERED: GLUCAGON 1 MG/VIAL IM PRN (15:37)
[2019-01-21] MEDS ORDERED: D50W 25 GM/50 ML SYRINGE/VIAL IV ONE (15:46)
[2019-01-21] MEDS: D50W 25 GM/50 ML SYRINGE/VIAL IV ONE ×2 (15:51→16:00)
[2019-01-21] MEDS: D5.45NS W/KCL 20MEQ 20 MEQ/1,000 ML BAG IV SCH (16:02)
[2019-01-22] MEDS: D5.45NS W/KCL 20MEQ 20 MEQ/1,000 ML BAG IV SCH ×4 (00:59→23:11)
[2019-01-22] MEDS: METRONIDAZOLE 500mg IVPB 500 MG/100 ML BAG IV SCH ×5 (00:59→23:11)
[2019-01-22] MEDS: MORPHINE 2 MG/ML SYR IV PRN ×5 (02:33→23:11)
[2019-01-22 06:08] LABS: Absolute Lymphocytes (CBC) 1.2 K/uL (0.7-4.9); Basophils % 0.4 % (0-1.3); Hematocrit 25.3 % (36.0-45.0); Lymphocytes % 11.1 % (15.3-44.8); MPV 7.2 fL (7.6-11.3); RBC Red Blood Cell Count 3.26 M/uL (3.86-4.86)
[2019-01-22 06:23] LABS: BUN Blood Urea Nitrogen 4 mg/dL (7-18); Bicarbonate 26 mmol/L (21-32); Glucose Level 103 mg/dL (74-106); Magnesium 1.8 mg/dL (1.8-2.4); Phosphorus 2.4 mg/dL (2.5-4.9); Potassium 3.7 mmol/L (3.5-5.1); Sodium Level 139 mmol/L (136-145)
[2019-01-22] MEDS: INSULIN -REGULAR HUMAN 50 UNIT/0.5 ML ML SQ SCH ×4 (07:30→21:00)
[2019-01-22] MEDS ORDERED: MAGNESIUM SULFATE 1 gm IVPB 1 GM/100 ML BAG IV ONE (08:00)
[2019-01-22] MEDS: Levofloxacin500mg IV 500 MG/100 ML BAG IV SCH (08:44)
[2019-01-22] MEDS: ENOXAPARIN 40 MG/0.4 ML SQ SCH (08:45)
[2019-01-22] MEDS ORDERED: POTASSIUM PHOS IN 0.9 % NACL 15 MMOL/250 ML BAG IV ONE (09:00)
--- NOTE | 2019-01-22 09:30 | P.PN ---
Subjective Date of Service: 01/22/19 Patient feels better today. Much improved from yesterday, ambulatory Physical Examination - Vital Signs Temperature: 98.0 F Blood Pressure: 127/72 Pulse: 82 Respirations: 16 Pulse Ox (%): 96 - Physical Exam General: Alert, In no apparent distress, Cooperative Neck: Supple Respiratory: Clear to auscultation bilaterally, Normal air movement Cardiovascular: No edema, Normal pulses, Regular rate/rhythm Gastrointestinal: Other (soft, mild TTP, ND, incision clean and dry) Musculoskeletal: No clubbing, No swelling Neurological: Normal gait, Normal speech Assessment And Plan - Plan POD #1 s/p Exploratory laparatomy and Jan patch repair of perforated gastric ulcer Neuro - continue current pain management regime, continue morphine CVS - HD stable, continue IV hydration, Hgb stable Pulm - Continue incentive spirometry with goal 15cc/kg GI - serial exams -will order swallow exam today, NG tube out FEN: continue IV hydration, electrolyte replacement protocol to continue, NPO ID: continue levaquin / flagyl for intra-abdominal contamination Renal: DC henderson, continue strict i/o Prophylaxis - continue lovenox for now, will likely DC soon when patient ambulatory, SCDs on - PT consult
--- NOTE | 2019-01-22 13:32 | RAD REPORT ---
EXAM DESCRIPTION: RAD - Upper GI W/KUB - 01/22/2019 1:19 pm CLINICAL HISTORY: evaulate for gastric leak Recent surgical repair of perforated viscous COMPARISON: No comparisons FINDINGS: Ore Feeder image demonstrates nonobstructive bowel-gas pattern. Midline skin didier seen. No f ree air detected. The patient was administered Gastrografin under fluoroscopic observation. Swallowing mechanism is nor mal. A small stomach cavity is seen with rapid emptying into the small bowel which is of normal calib er. There is no evidence of leakage of contrast into the peroneal cavity. IMPRESSION: No Gastrografin leakage is identified. Total fluoroscopy time: 1.3 minutes. Total number the images acquired: 10
[2019-01-23] MEDS: METRONIDAZOLE 500mg IVPB 500 MG/100 ML BAG IV SCH ×4 (06:05→23:05)
[2019-01-23] MEDS: MORPHINE 2 MG/ML SYR IV PRN ×2 (06:05→23:05)
[2019-01-23 06:13] LABS: Absolute Lymphocytes (CBC) 1.4 K/uL (0.7-4.9); Basophils % 0.4 % (0-1.3); Lymphocytes % 14.3 % (15.3-44.8); MPV 6.8 fL (7.6-11.3); RBC Red Blood Cell Count 3.36 M/uL (3.86-4.86)
[2019-01-23 06:27] LABS: BUN Blood Urea Nitrogen 3 mg/dL (7-18); Bicarbonate 27 mmol/L (21-32); Glucose Level 107 mg/dL (74-106); Magnesium 1.9 mg/dL (1.8-2.4); Phosphorus 3.4 mg/dL (2.5-4.9); Potassium 3.8 mmol/L (3.5-5.1); Sodium Level 140 mmol/L (136-145)
[2019-01-23] MEDS: INSULIN -REGULAR HUMAN 50 UNIT/0.5 ML ML SQ SCH ×4 (07:30→20:43)
[2019-01-23] MEDS: D5.45NS W/KCL 20MEQ 20 MEQ/1,000 ML BAG IV SCH ×3 (08:00→16:00)
[2019-01-23] MEDS: Levofloxacin500mg IV 500 MG/100 ML BAG IV SCH (08:54)
[2019-01-23] MEDS: ENOXAPARIN 40 MG/0.4 ML SQ SCH (08:55)
--- NOTE | 2019-01-23 14:13 | P.PN ---
Subjective Date of Service: 01/23/19 Patient feels better today. Much improved from yesterday, ambulatory, UGI negative for leak Physical Examination - Vital Signs Temperature: 97.8 F Blood Pressure: 128/79 Pulse: 72 Respirations: 16 Pulse Ox (%): 100 - Physical Exam General: Alert, In no apparent distress, Cooperative HEENT: Mucous membr. moist/pink Neck: Supple Respiratory: Normal air movement Cardiovascular: Normal S1 S2 Gastrointestinal: Other (soft, mild appropriate TTP, ND, incision clean and dry) Assessment And Plan - Plan POD #1 s/p Exploratory laparatomy and Jan patch repair of perforated gastric ulcer Neuro - continue current pain management regime, continue morphine CVS - HD stable, continue IV hydration, Hgb stable Pulm - Continue incentive spirometry with goal 15cc/kg GI - serial exams -swallow negative for leak FEN: continue IV hydration, electrolyte replacement protocol to continue, clear liquids today advance to full liquids ID: continue levaquin / flagyl for intra-abdominal contamination Renal: henderson out, continue strict i/o Prophylaxis - continue lovenox for now, will likely DC soon when patient ambulatory, SCDs on - PT consult
[2019-01-24] MEDS: D5.45NS W/KCL 20MEQ 20 MEQ/1,000 ML BAG IV SCH (05:17)
[2019-01-24] MEDS: METRONIDAZOLE 500mg IVPB 500 MG/100 ML BAG IV SCH ×2 (05:17→11:47)
[2019-01-24 05:51] LABS: Absolute Lymphocytes (CBC) 1.6 K/uL (0.7-4.9); Basophils % 0.4 % (0-1.3); Hematocrit 24.9 % (36.0-45.0); Lymphocytes % 19.4 % (15.3-44.8); MPV 6.9 fL (7.6-11.3); RBC Red Blood Cell Count 3.24 M/uL (3.86-4.86)
[2019-01-24 05:56] LABS: BUN Blood Urea Nitrogen 3 mg/dL (7-18); Bicarbonate 28 mmol/L (21-32); Glucose Level 98 mg/dL (74-106); Magnesium 1.8 mg/dL (1.8-2.4); Phosphorus 4.1 mg/dL (2.5-4.9); Potassium 4.2 mmol/L (3.5-5.1); Sodium Level 140 mmol/L (136-145)
[2019-01-24] MEDS: INSULIN -REGULAR HUMAN 50 UNIT/0.5 ML ML SQ SCH ×2 (07:30→11:30)
[2019-01-24 08:22] VITALS: BP 121/80; TEMP 97.6
[2019-01-24 08:36] LABS: Blood Morphology Comment NOT SEEN (NOT SEEN); Platelet Estimate ADEQ
[2019-01-24 08:57] VITALS: O2SAT 98
[2019-01-24] MEDS: ENOXAPARIN 40 MG/0.4 ML SQ SCH (09:00)
[2019-01-24] MEDS: Levofloxacin500mg IV 500 MG/100 ML BAG IV SCH (09:29)
--- NOTE | 2019-01-24 13:13 | P.DS ---
Admission Date: 01/19/19 Discharge Date: 01/24/19 Disposition: ROUTINE DISCHARGE Discharge Condition: GOOD Procedures: Exploratory Laparotomy with Jan patch repair Brief History of Present Illness: 33 year old woman with a history of Marquise en Y gastric bypass who presented wtih pefroated gastric ulcer at [facility] Course: patient was admitted with perforated ulcer, had surgery, did well, leak test was negative tolerating diet, ambulatory, no pain, normal bowel function Vital Signs/Physical Exam: Temp Pulse Resp BP Pulse Ox 97.6 F 69 15 121/80 99 01/24/19 08:00 01/24/19 08:00 01/24/19 08:00 01/24/19 08:00 01/24/19 08:00 General: Alert, In no apparent distress Respiratory: Clear to auscultation bilaterally Gastrointestinal: Other (soft, mild appropriate TTP, ND, didier in place) Laboratory Data at Discharge: WBC 8.4 K/uL (4.3-10.9) 01/24/19 05:26 Hgb 8.1 g/dL (12.0-15.0) L 01/24/19 05:26 Hct 24.9 % (36.0-45.0) L 01/24/19 05:26 Plt Count 358 K/uL (152-406) 01/24/19 05:26 Sodium 140 mmol/L (136-145) 01/24/19 05:26 Potassium 4.2 mmol/L (3.5-5.1) 01/24/19 05:26 BUN 3 mg/dL (7-18) L 01/24/19 05:26 Creatinine 0.61 mg/dL (0.55-1.3) 01/24/19 05:26 Glucose 98 mg/dL (74-106) 01/24/19 05:26 Phosphorus 4.1 mg/dL (2.5-4.9) 01/24/19 05:26 Magnesium 1.8 mg/dL (1.8-2.4) 01/24/19 05:26 Total Bilirubin 0.2 mg/dL (0.2-1.0) 01/19/19 08:47 AST 9 U/L (15-37) L 01/19/19 08:47 ALT 15 U/L (12-78) 01/19/19 08:47 Alkaline Phosphatase 53 U/L (45-117) 01/19/19 08:47 Home Medications: Loratadine [Claritin*] 10 mg PO DAILY 01/19/19 Hydrocodone 5/APAP 325 [[place] 5/325] 1 tab PO Q6H PRN #20 tab 01/24/19 Omeprazole [Prilosec] 40 mg PO DAILY 30 Days #30 capsule. 01/24/19 New Medications: Hydrocodone 5/APAP 325 [[place] 5/325] 1 tab PO Q6H PRN #20 tab PRN Reason: Pain Omeprazole [Prilosec] 40 mg PO DAILY 30 Days #30 capsule. Diet: soft diet Activity: No lifting more than 10 lbs Followup: Topher Matta MD [ACTIVE - CAN ADMIT] -
== END 2019-01-24 13:45 | disposition home or self-care (01) | DRG 326 ==
LOC: ER 08:16 → OR 10:45 → 3RD-ICU 10:46 → 2ND 01-20 12:58
PROVIDERS: ADMIT Surgery; ATTEND Surgery
PROC: 0DU607Z Supplement Stomach with Autologous Tissue Substitute, Open Approach (ICD-10-PCS; 2019-01-19)
PROC: 0WJG0ZZ Inspection of Peritoneal Cavity, Open Approach (ICD-10-PCS; principal; 2019-01-19 10:30)
DX: K63.1 Perforation of intestine (nontraumatic) (principal); K25.5 Chronic or unspecified gastric ulcer with perforation; Z98.84 Bariatric surgery status; Z88.0 Allergy status to penicillin
CPT/HCPCS: 36415; 71260; 74177; 74241; 80048; 80076; 81001; 82550; 82947; 83735; 84100; 85025; 86850; 86900; 86901; 87086; 87088; 96361; 96365; 96375; 97110; 97116; 97161; 97530; 99285; J0330; J1100; J1170; J1650; J2175; J2250; J2270; J2370; J2405; J2704; J2710; J3010; J3475; J3480; J7030; J7120; Q9967